=== PATIENT | female | born 1945 | race Two or more races ===

== ENCOUNTER 2017-06-24 19:53 | Inpatient (IN) | payer MEDICARE, OTHER ==
[~2017-06-24] VITALS: Ht 162.6 cm; Wt 73.9 kg
--- NOTE | 2017-06-24 19:56 | NUR ---
pt isra fr home for AMS, last seen normal approximately 1900 today. Per pt granddaughter report, pt found lying in bed unresponsive. pt AOx0, rt facial droop, unresponsive to verbal or painful stimuli w/ no movement all extremities, in gown on continuous monitoring. Dr. Johnson at bedside for further eval.
--- NOTE | 2017-06-24 20:10 | NUR ---
CODE STROKE PAGED ORDERED.
--- NOTE | 2017-06-24 20:11 | NUR ---
[facility] CALLED FOR CODE STROKE. SPOKE TO JANINE. DR. DAVIS NEUROLOGLYDIA
--- NOTE | 2017-06-24 20:12 | NUR ---
TRANSPORTED PT TO CT VIA [facility]
[2017-06-24] MEDS ORDERED: CT SWABBABLE VALVE TRANS SET 1 EA INFUS.SET MC ONE (20:20)
[2017-06-24] MEDS ORDERED: IV NS 0.9% 250 ML IV ONE (20:20)
[2017-06-24] MEDS ORDERED: IOHEXOL-350 100 ML VIAL IV ONE (20:20)
--- NOTE | 2017-06-24 20:20 | NUR ---
IVHL started, labs drawn & sent. pt sent to CT via [facility] on continuous monitoring w/ DEAN De Guzman at bedside.
--- NOTE | 2017-06-24 20:26 | NUR ---
18G LEFT AC IV STARTED. BLOOD SAMPLE OBTAINED AND SENT TO LAB
--- NOTE | 2017-06-24 20:27 | NUR ---
Dr. Gupta online for stroke neuro eval.
[2017-06-24 20:29] LABS: BASOPHILS # (AUTO) 0.1 /CMM (0.0-0.2); BASOPHILS % (AUTO) 0.9 % (0.0-2.0); EOSINOPHILS # (AUTO) 0.2 /CMM (0.0-0.7); EOSINOPHILS % (AUTO) 2.8 % (0.0-6.0); HEMATOCRIT 43 % (33-45); HEMOGLOBIN 14.2 g/dL (11.5-14.8); LYMPHOCYTES # (AUTO) 2.4 /CMM (0.8-4.8); LYMPHOCYTES % (AUTO) 36.4 % (20.0-44.0); MEAN CORPUSCULAR HEMOGLOBIN 30 PG (26.0-33.0); MEAN CORPUSCULAR HGB CONC 33 g/dl (31.0-36.0); MEAN CORPUSCULAR VOLUME 88 fL (82-100); MONOCYTES # (AUTO) 0.4 /CMM (0.1-1.30); MONOCYTES % (AUTO) 6.2 % (2.0-12.0); NEUTROPHILS # (AUTO) 3.4 /CMM (1.8-8.9); NEUTROPHILS % (AUTO) 53.7 % (43.0-81.0); PLATELET COUNT (AUTO) 217 /CMM (150-450); RDW COEFFICIENT OF VARIATION 12.9 (11.5-15.0); RED BLOOD CELL COUNT(AUTO) 4.82 MIL/uL (4.0-5.2); WHITE BLOOD COUNT (AUTO) 6.5 K/uL (4.3-11.0)
[2017-06-24 20:40] LABS: CALCIUM, SERUM 9.3 mg/dL (8.5-10.1); CARBON DIOXIDE 30 mmol/L (21-32); CHLORIDE 105 mmol/L (98-107); CREATININE 0.7 mg/dL (0.6-1.3); GLUCOSE 111 mg/dL (74-106); POTASSIUM 3.8 mmol/L (3.5-5.1); SODIUM SERUM 140 mmol/L (136-145); UREA NITROGEN, BLOOD 10 mg/dL (7-18)
[2017-06-24 20:44] LABS: INR 0.97 (0.87-1.13); PROTHROMBIN TIME 10.1 SECS (9.5-12.7)
--- NOTE | 2017-06-24 20:48 | NUR ---
Dr. Johnson at bedside talking w/ Dr. Gupta.
[2017-06-24 20:50] LABS: TROPONIN I < 0.017 ng/mL (0.00-0.056)
--- NOTE | 2017-06-24 20:50 | NUR ---
pt granddaughter at bedside advising Dr. Johnson that pt is Jehovah witness, unable to get blood transfusions and has a designated family member who has authorization to make medical decisions for pt.
--- NOTE | 2017-06-24 20:52 | NUR ---
TPA not recommended at this time. pt on continuous pulse-ox w/ cardiac monitoring.
[2017-06-24 20:58] LABS: ACETAMINOPHEN < 10 ug/ml (10-30); ALCOHOL, BLOOD < 3 mg/dL (0-0); SALICYLATE 0.4 mg/dL (2.8-20.0)
--- NOTE | 2017-06-24 21:27 | NUR ---
Granddaughter and son at bedside, unable to recall what medications pt currently taking. Dr. Johnson at bedside talking w/ family, updating on pt status. pt family instructed to bring in pt medications.
[2017-06-24 21:28] LABS: CREATINE KINASE, TOTAL 100 U/L (26-192)
--- NOTE | 2017-06-24 21:32 | NUR ---
agriculture laborer at bedside for Ammonia level draw.
--- NOTE | 2017-06-24 21:57 | NUR ---
Report given to DEAN Post for [facility], pt admission to [facility] rm 112-2.
[2017-06-24] MEDS ORDERED: IV NS 0.9% 1,000 ML BAG IV ONE (22:00)
[2017-06-24] MEDS ORDERED: PREG75CA PO (22:07)
[2017-06-24] MEDS ORDERED: CARV3.122 PO (22:07)
[2017-06-24] MEDS ORDERED: ASPI81TA2 PO (22:07)
[2017-06-24] MEDS ORDERED: FEBU40TA PO (22:07)
[2017-06-24] MEDS ORDERED: ISOS60TA PO (22:07)
[2017-06-24] MEDS ORDERED: ESCI10TA PO (22:07)
[2017-06-24] MEDS ORDERED: DONE10TA4 PO (22:07)
[2017-06-24] MEDS ORDERED: FAMO-131 PO (22:07)
[2017-06-24] MEDS ORDERED: ERGO500047 PO (22:07)
[2017-06-24] MEDS ORDERED: FLUT12AE5 INH (22:07)
[2017-06-24] MEDS ORDERED: ROSU40TA PO (22:07)
[2017-06-24] MEDS ORDERED: OXYB5TAB11 PO (22:07)
[2017-06-24] MEDS ORDERED: MELO-264 PO (22:07)
[2017-06-24] MEDS ORDERED: LEVO500T15 PO (22:07)
--- NOTE | 2017-06-24 22:07 | NUR ---
Pt son report only meds given today were donepezil, levofloxacin, lyrica, and fluticasone. Dr. Johnson notified.
--- NOTE | 2017-06-24 22:15 | NUR ---
pt becoming more and more responsive, slowly moving all extremities, but unable to hold extremities up longer than 5 secs. On continuous pulse-ox w/ cardiac monitoring. Family at bedside.
--- NOTE | 2017-06-24 23:30 | NUR ---
RN [facility] - NOTES - PT ADMITTED FOR ALTERED MENTAL STATUS, ON ADMISSION, PT IS AWAKE ALERT, ORIENTED X3, GRAND DAUGHTER AT BEDSIDE TO TRANSLATE. PT HAS NO NEURO DEFICITS, NIHSS 0. PT IS ON ROOM AIR TOLERATING WELL. PT IS NORMAL SINUS RHYTHM, HR 60S. PT IS NPO. PT IS ABLE TO VOID, WITH BRP. PT HAS LEFT AC 18G IV INTACT, PATENT BLOOD RETURN, AND LEFT HAND 20G IV INTACT PATENT. SKIN IS INTACT. WILL CONTINUE TO MONITOR
[2017-06-25] VITALS: BP 173/83
[2017-06-25] MEDS ORDERED: MAGNESIUM HYDROXIDE 30 ML UDC PO PRN (01:00)
[2017-06-25] MEDS ORDERED: ONDANSETRON HCL/PF 4 MG/2 ML VIAL IVP PRN (01:00)
[2017-06-25] MEDS ORDERED: Z GUARD REMEDY 2 OZ OINT TP PRN (01:00)
[2017-06-25] MEDS ORDERED: MAG HYDROX/AL HYDROX/SIMETH 30 ML UDC PO PRN (01:00)
--- NOTE | 2017-06-25 01:52 | NUR ---
DR CANALES AWARE OF HOME MEDS, NO NEW ORDERS
[2017-06-25 04:00] VITALS: BP 144/75
[2017-06-25] MEDS: BLOOD SUGAR DIAGNOSTIC 1 EACH STRIP IN SCH ×3 (05:57→17:54)
[2017-06-25 07:17] LABS: BASOPHILS % (AUTO) 0.8 % (0.0-2.0); CALCIUM, SERUM 9.1 mg/dL (8.5-10.1); CREATININE 0.6 mg/dL (0.6-1.3); EOSINOPHILS # (AUTO) 0.2 /CMM (0.0-0.7); EOSINOPHILS % (AUTO) 3.3 % (0.0-6.0); HEMATOCRIT 39 % (33-45); HEMOGLOBIN 13.3 g/dL (11.5-14.8); LYMPHOCYTES # (AUTO) 1.9 /CMM (0.8-4.8); LYMPHOCYTES % (AUTO) 34.8 % (20.0-44.0); MEAN CORPUSCULAR HEMOGLOBIN 30 PG (26.0-33.0); MEAN CORPUSCULAR HGB CONC 34 g/dl (31.0-36.0); MEAN CORPUSCULAR VOLUME 89 fL (82-100); MONOCYTES # (AUTO) 0.4 /CMM (0.1-1.30); MONOCYTES % (AUTO) 6.5 % (2.0-12.0); NEUTROPHILS % (AUTO) 54.6 % (43.0-81.0); PLATELET COUNT (AUTO) 195 /CMM (150-450); POTASSIUM 3.7 mmol/L (3.5-5.1); RDW COEFFICIENT OF VARIATION 13.4 (11.5-15.0); RED BLOOD CELL COUNT(AUTO) 4.38 MIL/uL (4.0-5.2); WHITE BLOOD COUNT (AUTO) 5.5 K/uL (4.3-11.0)
[2017-06-25 07:23] LABS: ALBUMIN 3.1 g/dL (3.4-5.0); INR 1.01 (0.87-1.13); PROTHROMBIN TIME 10.5 SECS (9.5-12.7); TOTAL PROTEIN, SERUM 6.3 g/dL (6.4-8.2)
[2017-06-25] MEDS ORDERED: BLOOD SUGAR DIAGNOSTIC 1 EACH STRIP IN SCH (07:30)
[2017-06-25 07:53] LABS: THYROID STIMULATING HORMONE 0.622 uIU/mL (0.358-3.74)
[2017-06-25 08:00] VITALS: BP 143/78
--- NOTE | 2017-06-25 12:00 | NUR ---
PT ASSESSED BY SPEECH, PT, AND OT. NO NEED FOR FURTHER TREATMENT BY THESE DEPARTMENTS.
[2017-06-25] MEDS: ACETAMINOPHEN 325 MG TABLET PO PRN (14:30)
--- NOTE | 2017-06-25 14:30 | NUR ---
PT STATES SHE HAS A HEADACHE 8/10 MEDICATED WITH TYLENOL.
--- NOTE | 2017-06-25 15:00 | NUR ---
PT'S FAMILY STATS THAT THE HEADACHE IS STILL VERY STRONG. PT STATS SHE USUALLY TAKES HYDROCODONE HOR HEADACHE. DR ELVIA LUNA NOTIFIED.
[2017-06-25 16:00] VITALS: BP 139/83
--- NOTE | 2017-06-25 16:07 | NUR ---
DR FLORES CONTACTED VIA VOIC[employer] AT THE OFFICE NUMBER. AWAITING FOR MORE ORDERS. Addendum: 06/25/17 at 1828 by HARINDER CHERRY RN DR LOVELACE CONTACTED VIA VOIC[employer] AT THE OFFICE NUMBER. AWAITING FOR MORE ORDERS.
[2017-06-25] MEDS ORDERED: IBUPROFEN 400 MG TABLET PO PRN (17:00)
[2017-06-25] MEDS: ISOSORBIDE MONONITRATE (30MG) 30 MG TAB.SR.24H PO SCH (19:24)
[2017-06-25] MEDS: ASPIRIN 81 MG TAB.CHEW PO SCH (19:25)
[2017-06-25] MEDS: CARVEDILOL 3.125 MG TABLET PO SCH (19:25)
[2017-06-25 20:00] VITALS: BP 116/72
[2017-06-26] MEDS: BLOOD SUGAR DIAGNOSTIC 1 EACH STRIP IN SCH ×5 (00:32→23:47)
[2017-06-26 04:00] VITALS: BP 115/74
--- NOTE | 2017-06-26 07:15 | NUR ---
RN NOTES RECEIVED PT FROM ANALYSIS SPECIALIST IN STABLE CONDITION. A&0X3, PRIMALLY MALDIVIAN SPEAKING. ON ROOM AIR NO SOB OR DISTRESS NOTED. LAC 18G AND LHAND 20G IV SITE DRY AND INTACT WITH NO IVF. BED LOCKED AND IN LOWEST POSITION, SIDE RAILS UPX3, CALL LIGHT WITHIN REACH, WILL CONT TO MONITOR.
[2017-06-26 07:31] LABS: BASOPHILS % (AUTO) 0.5 % (0.0-2.0); EOSINOPHILS # (AUTO) 0.2 /CMM (0.0-0.7); EOSINOPHILS % (AUTO) 3.1 % (0.0-6.0); HEMATOCRIT 38 % (33-45); HEMOGLOBIN 12.9 g/dL (11.5-14.8); LYMPHOCYTES # (AUTO) 1.8 /CMM (0.8-4.8); LYMPHOCYTES % (AUTO) 28.8 % (20.0-44.0); MEAN CORPUSCULAR HEMOGLOBIN 31 PG (26.0-33.0); MEAN CORPUSCULAR HGB CONC 34 g/dl (31.0-36.0); MEAN CORPUSCULAR VOLUME 90 fL (82-100); MONOCYTES # (AUTO) 0.4 /CMM (0.1-1.30); MONOCYTES % (AUTO) 6.5 % (2.0-12.0); NEUTROPHILS # (AUTO) 3.7 /CMM (1.8-8.9); NEUTROPHILS % (AUTO) 61.1 % (43.0-81.0); PLATELET COUNT (AUTO) 207 /CMM (150-450); RDW COEFFICIENT OF VARIATION 13.6 (11.5-15.0); RED BLOOD CELL COUNT(AUTO) 4.24 MIL/uL (4.0-5.2); WHITE BLOOD COUNT (AUTO) 6.1 K/uL (4.3-11.0)
[2017-06-26 07:59] LABS: CALCIUM, SERUM 9.4 mg/dL (8.5-10.1); CREATININE 0.7 mg/dL (0.6-1.3); MAGNESIUM 2.1 mg/dL (1.8-2.4); POTASSIUM 4.4 mmol/L (3.5-5.1)
[2017-06-26 08:00] VITALS: BP 114/65
[2017-06-26 08:13] LABS: INR 0.96 (0.87-1.13)
[2017-06-26] MEDS: CARVEDILOL 3.125 MG TABLET PO SCH (08:14)
[2017-06-26] MEDS: ISOSORBIDE MONONITRATE (30MG) 30 MG TAB.SR.24H PO SCH (08:14)
[2017-06-26] MEDS: ASPIRIN 81 MG TAB.CHEW PO SCH (08:14)
[2017-06-26] MEDS: ACETAMINOPHEN 325 MG TABLET PO PRN (08:44)
[2017-06-26 12:45] LABS: APPEARANCE,URINE CLEAR (CLEAR); BILIRUBIN,URINE NEGATIVE (NEGATIVE); BLOOD, URINE NEGATIVE Ery/uL (NEGATIVE); COLOR,URINE YELLOW (YELLOW); KETONES,URINE NEGATIVE (NEGATIVE); LEUKOCYTE ESTERASE ,URINE NEGATIVE (NEGATIVE); NITRITE, URINE NEGATIVE (NEGATIVE); PH,URINE 5.5 (5.0-8.0); PROTEIN,URINE NEGATIVE (NEGATIVE); UGLUCOSE 2+ mg/dL (NEGATIVE); UROBILINOGEN,URINE 0.2 EU/dL (0.2)
[2017-06-26] MEDS ORDERED: HYDROCODONE/APAP 5/325MG 1 EACH TABLET PO PRN (13:00)
[2017-06-26 16:00] VITALS: BP 118/20
[2017-06-26 16:15] VITALS: BP 118/70
--- NOTE | 2017-06-26 18:23 | NUR ---
RN NOTES PT RESTING IN BED NO DISTRESS NOTED. PT REMAINED IN STABLE CONDITION THROUGHOUT THE SHIFT, NO SIGNIFICANT CHANGES. ALL NEEDS MET. NO SOB OR DISTRESS NOTED. NO COMPLAINTS OF PAIN. BED LOCKED AND IN LOWEST POSITION, SIDE RAILS UPX3, CALL LIGHT WITHIN REACH, WILL ENDORSE TO ONCOMING SHIFT,
[2017-06-26 20:00] VITALS: BP_SYST 112; BP_SYST 126; BP_SYST 128; BP_DIAS 55; BP_DIAS 57; BP_DIAS 76
[2017-06-26] MEDS ORDERED: ATORVASTATIN 10 MG TABLET PO SCH (22:00)
[2017-06-27 04:00] VITALS: BP 141/84
[2017-06-27] MEDS: BLOOD SUGAR DIAGNOSTIC 1 EACH STRIP IN SCH ×2 (06:28→11:50)
[2017-06-27 07:17] LABS: BASOPHILS % (AUTO) 0.6 % (0.0-2.0); EOSINOPHILS # (AUTO) 0.3 /CMM (0.0-0.7); EOSINOPHILS % (AUTO) 3.8 % (0.0-6.0); HEMATOCRIT 40 % (33-45); HEMOGLOBIN 13.8 g/dL (11.5-14.8); LYMPHOCYTES # (AUTO) 2.5 /CMM (0.8-4.8); LYMPHOCYTES % (AUTO) 35.1 % (20.0-44.0); MEAN CORPUSCULAR HEMOGLOBIN 30 PG (26.0-33.0); MEAN CORPUSCULAR HGB CONC 34 g/dl (31.0-36.0); MEAN CORPUSCULAR VOLUME 88 fL (82-100); MONOCYTES # (AUTO) 0.5 /CMM (0.1-1.30); MONOCYTES % (AUTO) 7.5 % (2.0-12.0); NEUTROPHILS # (AUTO) 3.7 /CMM (1.8-8.9); PLATELET COUNT (AUTO) 215 /CMM (150-450); RDW COEFFICIENT OF VARIATION 13.1 (11.5-15.0); RED BLOOD CELL COUNT(AUTO) 4.57 MIL/uL (4.0-5.2)
[2017-06-27 07:33] LABS: CALCIUM, SERUM 9.3 mg/dL (8.5-10.1); CREATININE 0.7 mg/dL (0.6-1.3); MAGNESIUM 1.9 mg/dL (1.8-2.4); PHOSPHORUS 4.2 mg/dL (2.5-4.9); POTASSIUM 4.1 mmol/L (3.5-5.1)
[2017-06-27 08:00] VITALS: BP_SYST 137; BP_SYST 144; BP_SYST 145; BP_DIAS 65; BP_DIAS 82; BP_DIAS 83
--- NOTE | 2017-06-27 08:00 | NUR ---
MS1/RN AM SHIFT INITIAL NOTES RECEIVED PT AWAKE SITTING IN BED, A/O X 4, DENIES ANY SYMPTOMS, NO ACUTE CHANGE OF CONDITION NOTED. ON ROOM AIR SATURATING @ 96%. IV SITE FLUSHED, PATENT WITH NO S/S OF INFECTION. PT IS COMFORTABLE. SCHEDULED AM MEDS TO BE GIVEN. CL WITHIN REACHED AND SAFETY MAINTAINED. ON GOING MONITORING.
[2017-06-27] MEDS: ASPIRIN 81 MG TAB.CHEW PO SCH (09:09)
[2017-06-27] MEDS: CARVEDILOL 3.125 MG TABLET PO SCH (09:09)
[2017-06-27 09:10] VITALS: BP 145/83
[2017-06-27] MEDS: ISOSORBIDE MONONITRATE (30MG) 30 MG TAB.SR.24H PO SCH (09:10)
[2017-06-27] MEDS: ACETAMINOPHEN 325 MG TABLET PO PRN (10:48)
--- NOTE | 2017-06-27 13:00 | NUR ---
MS1/RN ROUNDS - CONSUELO TAYLOR UPDATED PT'S CONDITION. PT SEEN & EXAMINED BY CONSUELO TAYLOR, NO NEW ORDER RECEIVED AT THIS TIME. MONITORING CONTINUED.
--- NOTE | 2017-06-27 13:16 | NUR ---
MS1/RN ECHOCARDIOGRAM ECHOCARDIOGRAM PERFORMED AT BEDSIDE, COMPLETED. PT WITH 75% EJECTION FRACTION. MONITORING CONTINUED.
[2017-06-27] MEDS ORDERED: KETOROLAC TROMETHAMINE INJ 30 MG/ML VIAL IV ONE (14:00)
--- NOTE | 2017-06-27 16:00 | NUR ---
MS1/WATER AEROBICS INSTRUCTOR - HOME DISCHARGE INSTRUCTIONS GIVEN TO PT'S SON, VERBALIZED UNDERSTANDING. DISCHARGE DOCUMENTS GIVEN TO PT'S SON, NO PRESCRIPTION GIVEN. PERSONAL BELONGINGS INCLUDING OWN MEDICATIONS RETURNED, INVENTORY LOG SIGNED OFF. ID BAND REMOVED, IV SITE REMOVED, PRESSURE DRESSING APPLIED, NO S/S OF INFECTION. PT LEFT MS1 IN STABLE CONDITION VIA WHEELCHAIR ACCOMPANIED BY PT'S (2) SONS AND CLASSROOM PARAPROFESSIONAL TO AN AWAITING PRIVATE CARE.
== END 2017-06-27 16:20 | disposition home or self-care (01) | DRG 69 ==
LOC: ER 19:55 → TELE-TD 22:44 → MEDSG1 06-25 10:04
PROVIDERS: ADMIT Family Medicine
DX: G45.9 Transient cerebral ischemic attack, unspecified (principal); G93.41 Metabolic encephalopathy; E11.9 Type 2 diabetes mellitus without complications; F03.90 Unspecified dementia, unspecified severity, without behavioral disturbance, psychotic disturbance, mood disturbance, and anxiety; E78.5 Hyperlipidemia, unspecified; F32.9 Major depressive disorder, single episode, unspecified; I10 Essential (primary) hypertension; I25.10 Atherosclerotic heart disease of native coronary artery without angina pectoris; Z79.899 Other long term (current) drug therapy; Z79.82 Long term (current) use of aspirin; Z88.0 Allergy status to penicillin; R32 Unspecified urinary incontinence; J44.9 Chronic obstructive pulmonary disease, unspecified
CPT/HCPCS: 36415; 70450-TC; 70496-TC; 70498-TC; 70551-TC; 71010-TC; 80048-TC; 80053-TC; 80061-TC; 80305; 81000-TC; 82140-TC; 82550-TC; 82962-TC; 83735-TC; 83880; 84100-TC; 84443-TC; 84484-TC; 85025-TC; 85652-TC; 85730-TC; 87081-TC; 92611-TC; 93307-TC; 97116-TC; 97530-TC; A4606; G0480; J1885; J7030; J7050; Q9967; Z7610